=== PATIENT | male | born 1990 | race Caucasian/White ===

== ENCOUNTER 2023-08-01 22:19 | Emergency (ER) | payer OTHER, SELFPAY ==
[2023-08-01 22:23] VITALS: BP 165/101; PULSE 114; RESP 16; TEMP 36.9; O2SAT 97; BMI 29.5
--- NOTE | 2023-08-01 22:37 | DI.RAD.S_ITS ---
PROCEDURE: XR KNEE LT 3V INDICATIONS: eval for fracture TECHNIQUE: 3 views of the knee were acquired. COMPARISON: None. FINDINGS: Bones: No fractures or dislocations. No suspicious bony lesions. Soft tissues: No joint effusion. No suspicious soft tissue calcifications. IMPRESSION: No acute bony abnormality or significant effusion. If clinical symptoms persist or clinical suspicion for pathology is high, a repeat examination in 7-10 days, or advanced imaging such as CT or MRI is suggested for further evaluation. Dictated by: Omer Lou M.D. on 08/01/2023 at 23:00 Approved by: Omer Lou M.D. on 08/01/2023 at 23:00
--- NOTE | 2023-08-01 23:18 | ED.EXTPRO ---
HPI - Extremity Problem General Chief complaint: Extremity Problem,Nontraumatic Stated complaint: lt knee pain, thinks he tore something Time Seen by Provider: 08/01/23 22:26 Source: patient Mode of arrival: Wheelchair History of Present Illness HPI Narrative: Patient is a 32-year-old male here for evaluation of left knee pain and swelling. At the end of last year he sustained a injury to his left knee. Was told that he potentially had a torn meniscus. Was advised that he may need a MRI. He actually never got the MRI because he states that his symptoms improved. He has been ambulatory. Stated that a couple days ago he twisted his left knee and since that time has had increase in pain and instability and swelling. Does have a knee brace that he has been wearing. He is crutches that he has been using his needed. Does have follow-up on Saturday. Related Data Previous Rx's Medication Instructions Recorded fluconazole 150 mg tablet 150 mg PO QWEEK 4 weeks #4 tabs 07/12/23 hydrocodone 5 mg-acetaminophen 325 1 tab PO Q4-6H PRN pain #10 tabs 08/01/23 mg tablet hydrocodone 5 mg-acetaminophen 325 1 tab PO Q6H PRN pain #10 tabs 08/01/23 mg tablet ondansetron 4 mg disintegrating 4 mg PO Q6H PRN nausea and 08/01/23 tablet vomiting #10 tabs ondansetron 4 mg disintegrating 4 mg PO Q6H PRN nausea and 08/01/23 tablet vomiting #10 tabs Allergies Allergy/AdvReac Type Severity Reaction Status Date / Time No Known Drug Allergies Allergy Verified 07/12/23 11:10 Review of Systems Constitutional Constitutional: Reports system reviewed and no additional complaints, except as documented Musculoskeletal Musculoskeletal: Reports system reviewed and no additional complaints, except as documented Integumentary/Breasts Skin/Breast: Reports system reviewed and no additional complaints, except as documented Neurologic Neurologic: Reports system reviewed and no additional complaints, except as documented Patient History Social History Smoking Status: Former smoker Smoking Status: Former smoker Substance Use Type: marijuana Exam Initial Vital Signs Initial Vital Signs: Vital Signs Temperature 98.4 F 08/01/23 22:23 Pulse Rate 114 H 08/01/23 22:23 Respiratory Rate 16 08/01/23 22:23 Blood Pressure 165/101 H 08/01/23 22:23 Pulse Oximetry 97 08/01/23 22:23 Oxygen Delivery Method Room Air 08/01/23 22:23 Const General: comfortable Skin General: no rashes or lesions noted Neuro Sensory Exam: no sensory deficits noted Extrem Other: He does have swelling throughout the left knee. Tenderness with palpation throughout the knee. Does seem to have quite a bit of discomfort with stressing of the MCL without a firm endpoint. LCL appears to be intact. Can not accurately test the ACL and PCL because of discomfort. Course Orders Ordered: ED Orders 08/01/23 22:37 XR knee LT 3V Stat Discontinued Medications Hydrocodone Bitart/Acetaminophen (Hydrocodone/Acet 5/325 Prepack) 1 bottle MISC DIRECTED ONE Stop: 08/01/23 23:20 Last Admin: 08/01/23 23:29 Dose: 1 bottle Ondansetron HCl (Ondansetron 4 Mg Odt Prepack) 1 bottle MISC DIRECTED ONE Stop: 08/01/23 23:20 Last Admin: 08/01/23 23:29 Dose: 1 bottle Vital Signs Vital signs: Vital Signs - 8 hr 08/01/23 22:23 08/01/23 23:38 Temperature 98.4 F Pulse Rate 114 H 86 Respiratory Rate 16 18 Blood Pressure 165/101 H 135/80 Pulse Oximetry 97 98 Oxygen Delivery Method Room Air Room Air MDM - Extremity (Nontraumatic) Imaging Data Extremity x-ray #1: Radiologist's Impression: PROCEDURE: XR KNEE LT 3V INDICATIONS: eval for fracture TECHNIQUE: 3 views of the knee were acquired. COMPARISON: None. FINDINGS: Bones: No fractures or dislocations. No suspicious bony lesions. Soft tissues: No joint effusion. No suspicious soft tissue calcifications. IMPRESSION: No acute bony abnormality or significant effusion. If clinical symptoms persist or clinical suspicion for pathology is high, a repeat examination in 7-10 days, or advanced imaging such as CT or MRI is suggested for further evaluation [facility] Narrative Medical decision making narrative: X-ray shows no signs of fracture. He does have an effusion. I do have some concern about potentially an MCL injury. There is also possibility of meniscus injury. We discussed the use of the Major bandage and also the knee brace. The crutches as tolerated. Pain control. Follow up on Saturday to discuss further evaluation to include potentially a MRI. Patient was given return precautions. He expressed understanding and agreement. Discharge Plan Departure Patient Disposition: Home Clinical Impression: Effusion of knee joint, left Instructions: How To Perform RICE (Rest, Ice, Compress, Elevate), How to Apply an Elastic Wrap on Knee Activity Restrictions/Additional Instructions: You can walk on your leg as tolerated. Do recommend you keep your follow-up appointment on Saturday. Icing your knee can be helpful as well. Return to the emergency department for new symptoms Prescriptions: New ondansetron 4 mg tablet,disintegrating 4 mg PO Q6H PRN (Reason: nausea and vomiting) Qty: 10 0RF hydrocodone-acetaminophen 5-325 mg tablet 1 tab PO Q4-6H PRN (Reason: pain) Qty: 10 0RF ondansetron 4 mg tablet,disintegrating 4 mg PO Q6H PRN (Reason: nausea and vomiting) Qty: 10 0RF hydrocodone-acetaminophen 5-325 mg tablet 1 tab PO Q6H PRN (Reason: pain) Qty: 10 0RF No Action fluconazole 150 mg tablet 150 mg PO QWEEK 28 Days Qty: 4 0RF Rx Instructions: Take 1 tab/week for 4 weeks. Referrals: Miscellaneous,Doctor, MD [Primary Care Provider] - Stand Alone Forms: Patient Portal/API
[2023-08-01] MEDS: HYDROCODONE/ACET 5/325 PREPACK 1 BOTTLE MISC (23:29)
[2023-08-01] MEDS: ONDANSETRON 4 MG ODT PREPACK 1 BOTTLE MISC (23:29)
[2023-08-01 23:38] VITALS: BP 135/80; PULSE 86; RESP 18; O2SAT 98
== END 2023-08-01 23:44 | disposition home or self-care (01) ==
PROVIDERS: Emergency Provider Emergency Medicine
DX: M25.462 Effusion, left knee (principal)
CPT/HCPCS: 73562; 99281; 99283